=== PATIENT | male | born 1975 | race Two or more races ===

== ENCOUNTER 2024-03-24 08:57 | Emergency (ER) | payer OTHER ==
[~2024-03-24] VITALS: Ht 182.9 cm; Wt 100.0 kg
[2024-03-24 08:59] VITALS: TEMP 98.6
[2024-03-24] MEDS ORDERED: ACET-66 PO (09:45)
[2024-03-24] MEDS ORDERED: IBUP-1506 PO (09:45)
[2024-03-24] MEDS: IBUPROFEN 400 MG TABLET PO ONE (09:59)
[2024-03-24] MEDS: ACETAMINOPHEN 325 MG TABLET PO ONE (09:59)
[2024-03-24] MEDS: PETROLATUM,WHITE 5 GM PACKET JELLY TP ONE (09:59)
[2024-03-24 10:00] VITALS: BP 139/77; PULSE 58; RESP 16; O2SAT 99
== END 2024-03-24 10:08 | disposition home or self-care (01) ==
LOC: EMS 09:00
DX: T21.01XA Burn of unspecified degree of chest wall, initial encounter (principal); X11.0XXA Contact with hot water in bath or tub, initial encounter; Y93.89 Activity, other specified; Y92.89 Other specified places as the place of occurrence of the external cause; Y99.8 Other external cause status
CPT/HCPCS: 99284; Z7502; Z7610